=== PATIENT | female | born 1975 | race Caucasian/White ===

== ENCOUNTER 2016-06-03 16:33 | Emergency (ER) | payer MEDICAID ==
[2016-06-03 16:59] VITALS: PULSE 67
[2016-06-03 17:59] LABS: % IMMATURE GRANULYOCYTES 0.6 % (0.0-1.1); ABSOLUTE IMMATURE GRANULOCYTES 0.05 10^3/uL (0.00-0.10); ADD DIFF? NO; ADD MORPH? NO; ADD SCAN? NO; ATYPICAL LYMPHOCYTE FLAG 0 (0-99); FRAGMENT RBC FLAG 0 (0-99); HEMATOCRIT 45.6 % (38.0-47.0); HEMOGLOBIN 15.7 g/dL (12.6-16.3); LEFT SHIFT FLG 0 (0-99); LIPEMIA HEMOLYSIS FLAG 90 (0-99); MEAN CELL HEMOGLOBIN 32.9 pg (27.9-34.1); MEAN CELL HEMOGLOBIN CONCENTR. 34.4 g/dL (32.4-36.7); MEAN CELL VOLUME 95.6 fL (81.5-99.8); MEAN PLATELET VOLUME 9.7 fL (8.7-11.7); PLATELET CLUMPS FLAG 0 (0-99); PLATELET COUNT 253 10^3/uL (150-400); RED BLOOD CELL COUNT 4.77 10^6/uL (4.18-5.33); RED CELL DISTRIBUTION WIDTH 12.5 % (11.5-15.2)
[2016-06-03 18:25] LABS: ANION GAP 11 mEq/L (8-16); CALCIUM 9.6 mg/dL (8.5-10.4); CARBON DIOXIDE 22 mEq/l (22-31); CHLORIDE 105 mEq/L (97-110); CREATININE 0.8 mg/dL (0.6-1.0); ETHANOL SERUM < 10 mg/dL (0-10); GLOMERULAR FILTRATION RATE > 60; GLUCOSE 78 mg/dL (70-100); POTASSIUM 5.5 mEq/L (3.5-5.2); SODIUM 138 mEq/L (134-144); SPECIMEN HEMOLYSIS 154
--- NOTE | 2016-06-03 18:38 | EDPHY ---
Mental Health General Previous Psychiatric History: previous inpatient psychiatric admission, self- harm (cutting), depression Smoking Status: Never smoked Time of Transfer of Care: 19:00 To Dr:: juaquin Course: patient remained stable over course of my shift <Cony Barnett - Last Filed: 06/03/16 19:18> <Gomez Cyr - Last Filed: 06/04/16 00:15> Time of Transfer of Care: 22:59 To Dr:: Ger Course: patient remained stable over course of my shift, eval by mental health <HelenaAndreas parada Jyoti - Last Filed: 06/06/16 16:25> Narrative: CHIEF COMPLAINT: anxiety HISTORY OF PRESENT ILLNESS: 41-year-old female with past medical history of depression presents complaining of worsening depression for the past year. Patient reports she had a cervical fusion 1 year ago, and reports increasing anxiety and depression. She reports she has had some "energy work" done and her symptoms improved mildly. These have worsened over the last couple weeks with increased life stressors. Patient denies drug or alcohol use. Patient reports she was seen at the crisis [facility] yesterday and was placed the [facility]. She reports she was promised she would see a psychiatrist. She was uncomfortable and did not feel safe the [facility] and did not feel like she is being treated appropriately by the staff so left and presented to the emergency department. Patient reports anxiety and fear of being alone. She denies having a suicidal plan, no access to guns at this time. She denies auditory or visual hallucinations, no homicidal ideations. REVIEW OF SYSTEMS: A comprehensive 10 point review of systems is otherwise negative aside from elements mentioned in the history of present illness. Physical Exam Gen: Alert and Oriented, NAD HEENT: PERRL, moist mucous membranes NECK: no meningismus CV: regular rate and regular rhythm PULM: CTAB, no wheezes NEURO: Neurologically grossly intact EXTREMITIES: normal appearing SKIN: no rash or break in skin on exposed skin PSYCH: Flat affect, reports chronic suicidal thoughts, denies homicidal ideations, auditory and visual hallucinations (Cony Barnett) Medical Decision Makin-report passed on to Dr. Capellan at the end of my shift pending medical clearance. (Cony Barnett) And with EPS seen evaluated this patient. Consultation was made with Dr. Pena. Patient does not meet inpatient psychiatric criteria. Patient be discharged from the emergency room. She has, cooperative and okay with this plan. She denies wanting to hurt herself or anybody else. She does understand to return immediately to emergency room she has thoughts of suicide or wants to harm herself. (Gomez Cyr) This patient presents with depression and passive SI. Her medical clearance workup reveals significantly elevated TSH, suggesting hypothyroidism, which could certainly be contributing to patient's symptoms. I have ordered synthroid and written an outpatient prescription for more as well as given referral to [facility] should she be discharged. The patient is quite manipulative, and her motivations for this ER encounter as somewhat unclear. We will await psych evaluation. (Andreas Capellan) - Objective Vital Signs: Initial Vital Signs Temperature (C) 36.8 C 06/03/16 16:45 Heart Rate 67 06/03/16 16:45 Respiratory Rate 16 06/03/16 16:45 Blood Pressure 103/68 06/03/16 16:45 O2 Sat (%) 98 06/03/16 16:45 O2 Delivery Mode Room Air Allergies/Adverse Reactions: olanzapine [From Zyprexa] Allergy (Severe, Verified 06/03/16 16:59) "cardiac arrest" risperidone [From Risperdal] Allergy (Severe, Verified 06/03/16 17:02) throat closes up lithium Allergy (Intermediate, Verified 06/03/16 17:02) muscle cramps aspirin Allergy (Mild, Verified 06/03/16 17:02) GI valerian root Allergy (Severe, Uncoded 06/03/16 17:02) makes me suicidal orthotricyclen Allergy (Mild, Uncoded 06/03/16 17:02) makes me emotional Home Medications: Medication Instructions Recorded Levothyroxine [Synthroid 100 mcg 100 mcg PO DAILY06 #30 tab 06/03/16 (*)] Levothyroxine [Synthroid 112 mcg 112 mcg PO 06/03/16 (*)] Laboratory Results: Laboratory Results 06/03/16 17:30 06/03/16 17:30 06/03/16 06/03/16 06/03/16 17:30 17:30 17:30 WBC 8.48 10^3/uL 10^3/uL (3.80-9.50) RBC 4.77 10^6/uL 10^6/uL (4.18-5.33) Hgb 15.7 g/dL g/dL (12.6-16.3) Hct 45.6 % % (38.0-47.0) MCV 95.6 fL fL (81.5-99.8) MCH 32.9 pg pg (27.9-34.1) MCHC 34.4 g/dL g/dL (32.4-36.7) RDW 12.5 % % (11.5-15.2) Plt Count 253 10^3/uL 10^3/uL (150-400) MPV 9.7 fL fL (8.7-11.7) Neut % (Auto) 62.7 % % (39.3-74.2) Lymph % (Auto) 28.3 % % (15.0-45.0) [place] % (Auto) 7.1 % % (4.5-13.0) Eos % (Auto) 0.6 % % (0.6-7.6) Baso % (Auto) 0.7 % % (0.3-1.7) Nucleat RBC Rel Count 0.0 % % (0.0-0.2) Absolute Neuts (auto) 5.32 10^3/uL 10^3/uL (1.70-6.50) Absolute Lymphs (auto) 2.40 10^3/uL 10^3/uL (1.00-3.00) Absolute Monos (auto) 0.60 10^3/uL 10^3/uL (0.30-0.80) Absolute Eos (auto) 0.05 10^3/uL 10^3/uL (0.03-0.40) Absolute Basos (auto) 0.06 10^3/uL 10^3/uL (0.02-0.10) Absolute Nucleated RBC 0.00 10^3/uL 10^3/uL (0-0.01) Immature Gran % 0.6 % % (0.0-1.1) Immature Gran # 0.05 10^3/uL 10^3/uL (0.00-0.10) Sodium 138 mEq/L mEq/L (134-144) Potassium 5.5 mEq/L H mEq/L (3.5-5.2) Chloride 105 mEq/L mEq/L (97-110) Carbon Dioxide 22 mEq/l mEq/l (22-31) Anion Gap 11 mEq/L mEq/L (8-16) BUN 11 mg/dL mg/dL (7-23) Creatinine 0.8 mg/dL mg/dL (0.6-1.0) Estimated GFR > 60 Glucose 78 mg/dL mg/dL (70-100) Calcium 9.6 mg/dL mg/dL (8.5-10.4) TSH 85.700 uIU/mL H uIU/mL (0.465-4.680) Beta HCG, Qual NEGATIVE Specimen Hemolysis 154 Urine Opiates Screen Urine Barbiturates Ur Phencyclidine Scrn Ur Amphetamine Screen U Benzodiazepines Scrn Urine Cocaine Screen U Marijuana (THC) Screen Ethyl Alcohol < 10 mg/dL mg/dL (0-10) 06/03/16 17:08 WBC RBC Hgb Hct MCV MCH MCHC RDW Plt Count MPV Neut % (Auto) Lymph % (Auto) [place] % (Auto) Eos % (Auto) Baso % (Auto) Nucleat RBC Rel Count Absolute Neuts (auto) Absolute Lymphs (auto) Absolute Monos (auto) Absolute Eos (auto) Absolute Basos (auto) Absolute Nucleated RBC Immature Gran % Immature Gran # Sodium Potassium Chloride Carbon Dioxide Anion Gap BUN Creatinine Estimated GFR Glucose Calcium TSH Beta HCG, Qual Specimen Hemolysis Urine Opiates Screen NEGATIVE (NEGATIVE) Urine Barbiturates NEGATIVE (NEGATIVE) Ur Phencyclidine Scrn NEGATIVE (NEGATIVE) Ur Amphetamine Screen NEGATIVE (NEGATIVE) U Benzodiazepines Scrn NEGATIVE (NEGATIVE) Urine Cocaine Screen NEGATIVE (NEGATIVE) U Marijuana (THC) Screen NEGATIVE (NEGATIVE) Ethyl Alcohol Departure <Cony Barnett - Last Filed: 06/03/16 19:18> <Gomez Cyr - Last Filed: 06/04/16 00:15> <Andreas Capellan - Last Filed: 06/06/16 16:25> - Departure Disposition: Home, Routine, Self-Care Clinical Impression: Severe major depression Condition: Fair Instructions: Depression (ED), Hypothyroidism (ED) Additional Instructions: You MUST follow-up with your primary care doctor or an glass engraver within one week to evaluate your thyroid condition and treatment. Referrals: KENDALL CORONA [Primary Care Provider] - As per Instructions Fercho Ventura MD [Medical Doctor] - As per Instructions Prescriptions: Levothyroxine [Synthroid 100 mcg (*)] 100 mcg PO DAILY06 #30 tab
[2016-06-04 00:39] VITALS: BP 106/66; RESP 12; TEMP 98.1; O2SAT 95
== END 2016-06-04 00:23 | disposition home or self-care (01) ==
DX: F32.9 Major depressive disorder, single episode, unspecified (principal)
CPT/HCPCS: 80305; G0480